=== PATIENT | male | born 1950 | race Caucasian/White ===

== ENCOUNTER → 2017-04-20 | Outpatient (CLI) | payer MEDICARE, MEDICAID ==
[~2017-04-20] MED LIST: AFLURIA 2045 MCG/0.4 IM; DULCOLAX-DPS10 MG PR; ENEMA READY TO133 ML PR; HYDROCODONE 7.7.5 MG PO; HYZAAR-100/251 TAB PO; MILK OF MAGNESI10 ML PO; MS CONTIN DPS15 MG PO; NEURONTIN DPS300 MG PO; NYSTATIN CREAM15 GM TP; PROSTAPHLIN DPS2 GM IV; SENOKOT S1 TAB PO; XARELTO15 MG PO; XARELTO20 MG PO
== END | disposition home or self-care (01) ==
LOC: PTH.S 04-13 15:45
DX: R19.7 Diarrhea, unspecified (principal); B83.9 Helminthiasis, unspecified